=== PATIENT | male | born 1950 | race Caucasian/White ===

== ENCOUNTER 2023-10-21 11:52 | Outpatient (RCR) | payer MEDICARE, OTHER, SELFPAY | END 2023-10-21 23:59 | disposition home or self-care (01) | LOC: RPT 11:52 | PROVIDERS: ATTENDING PHYSICIAN Orthopaedic Surgery; FAMILY PHYSICIAN Registered Nurse | DX: Z47.89 Encounter for other orthopedic aftercare (principal); Z73.6 Limitation of activities due to disability | CPT/HCPCS: 97010; 97110; 97140; 97162 ==

== ENCOUNTER 2023-11-18 09:46 | Outpatient (RCR) | payer MEDICARE, OTHER, SELFPAY | END 2023-11-18 10:58 | disposition home or self-care (01) | LOC: RPT 09:46 | PROVIDERS: ATTENDING PHYSICIAN Orthopaedic Surgery; FAMILY PHYSICIAN Registered Nurse | DX: Z47.89 Encounter for other orthopedic aftercare (principal); Z73.6 Limitation of activities due to disability; R26.2 Difficulty in walking, not elsewhere classified; M62.81 Muscle weakness (generalized); M25.511 Pain in right shoulder | CPT/HCPCS: 97010; 97110; 97140 ==

== ENCOUNTER 2023-12-19 06:03 | Inpatient (IN) | payer MEDICARE, OTHER, SELFPAY ==
--- NOTE | 2023-11-15 09:33 | CM ---
Patient is scheduled for an elective R TKR on 12/19/23. Spoke with patient prior to surgery via telephone. Patient had a L TKR at in 2018. Reintroduced role of Orthopedic Navigator. Patient reports that he lives with his in a two story home.
There are no steps to enter and a flight of steps to the second floor (right ascending rail). There is a powder room on the first floor. He currently functions independently and uses a cane. He also has a rolling walker walker. He has never had VN
services. PCP is Roney Gambino.
Discussed orthopedic program and post surgical plans. Reviewed anticipated length of stay and that goal is for him to return home at discharge. Also reviewed outpatient PT. Patient is in agreement with tentative plan and will go directly to
outpatient PT at [facility]. He will have support from his when he goes home.
Patient will complete online education.
Plan: Orthopedic Navigator will remain available to assist with the care of patient and will reassess discharge needs after surgery.
[2023-11-27 13:43] VITALS: BMI 32.5
[2023-11-27 14:20] LABS: Hematocrit 40.1 % (39.0-52.0); Hemoglobin 13.7 g/dL (13.0-18.0); Mean Corp Hgb Conc. 34.2 g/dL (33.0-37.0); Mean Corpuscular Volume 87.9 fL (80.0-94.0); Mean Platelet Volume 9.4 fL (7.4-10.4); Platelet Count 254 10^3/uL (130-400); Red Blood Cell Count 4.56 10^6/uL (4.70-6.10); Red Cell Dist. Width 11.9 % (11.5-14.5); White Blood Cell Count 6.9 10^3/uL (4.8-10.8)
[2023-11-27 15:04] LABS: ALT (SGPT) 17 U/L (0-50); AST (SGOT) 26 U/L (17-59); Albumin 4.5 g/dl (3.5-5.0); Alkaline Phosphatase 77 U/L (38-126); Blood Urea Nitrogen 14 mg/dl (9-20); Calcium 9.4 mg/dl (8.4-10.2); Carbon Dioxide 29 mmol/L (22-30); Chloride 101 mmol/L (98-107); Estimated Creatinine Clearance > 125 ml/min; Glucose 83 mg/dl (70-99); Potassium 4.6 mmol/L (3.5-5.1); Sodium 135 mmol/L (135-145); Total Bilirubin 0.7 mg/dl (0.2-1.3); Total Protein 6.9 g/dl (6.3-8.2); eGFR > 60.00
[2023-11-27 15:16] VITALS: BMI 32.5
[2023-11-28 08:54] LABS: Glycohemoglobin (HgbA1c) 5.4 % (4.0-5.6)
[2023-12-19] VITALS (18 sets, daily range): BP systolic 120–156; BP diastolic 70–103; PULSE 89; O2SAT 97; BMI 32.5
[2023-12-19] MEDS: CELEBREX 200 MG PO (06:33)
[2023-12-19] MEDS: NORMOSOL-R 1000 IV ×2 (06:33→09:42)
[2023-12-19] MEDS: TYLENOL 650 MG PO ×5 (06:33→23:39)
[2023-12-19] MEDS: ROXICODONE 5 MG PO (09:45)
[2023-12-19] MEDS: TYLENOL PO (12:08)
[2023-12-19] MEDS: SINGULAIR 10 MG PO (12:32)
[2023-12-19] MEDS: CARDURA 2 MG PO (12:33)
--- NOTE | 2023-12-19 14:36 | PTCARENOTE ---
pt admitted to room 2119 from PACU at 1345. pt arrived via bed, awake and alert. pt oriented to room, bed controls, call maza and plan of care with verbalized understanding. telemetry reading SR w/pvc's in 70's. neurovascular checks b/l le's WNL.
right knee dressing clean and dry. pt denies c/o pain or discomfort. will observe.
--- NOTE | 2023-12-19 14:38 | W.PN.UPDATE ---
Update Note
Progress Note Update
Patient doing well postop. VSS. Pulm: nonlabored. CV: regular. RLE: Dressing CDI. NVI distally. Calf soft. Postop xray as expected. ASA for DVT prophylaxis. OOB with PT today and plan for discharge home tomorrow with outpatient PT on Saturday
at .
[2023-12-19] MEDS: FLOMAX 0.400000000000000022 MG PO (15:18)
[2023-12-19] MEDS: ANCEF 5 IV ×2 (15:18→23:40)
[2023-12-19] MEDS: ROXICODONE 10 MG PO ×2 (15:18→22:07)
--- NOTE | 2023-12-19 16:35 | RESPNOTE ---
Patient does not wear HS CPAP- wears mouthpiece-- NO machine left bedside
[2023-12-19] MEDS: ASPIRIN 325 MG PO (18:28)
[2023-12-19] MEDS: DECADRON 4 MG PO (19:34)
[2023-12-19] MEDS: COLACE 100 MG PO (19:34)
[2023-12-19] MEDS: SENOKOT 17.1999999999999993 MG PO (19:34)
[2023-12-19] MEDS: PROTONIX 20 MG PO (19:34)
[2023-12-19] MEDS: TORADOL 15 MG IV (19:35)
[2023-12-19] MEDS: TAMBOCOR 100 MG PO (19:36)
[2023-12-19] MEDS: BACTROBAN 2% OINTMENT 1 APPLIC NASAL (21:34)
[2023-12-19] MEDS: NEURONTIN 300 MG PO (21:34)
[2023-12-19] MEDS: MAG-TAB SR 84 MG PO (21:35)
[2023-12-20] MEDS: TYLENOL 650 MG PO ×3 (03:28→11:57)
[2023-12-20] MEDS: ROXICODONE 5 MG PO (03:29)
[2023-12-20 03:35] VITALS: BP 130/80
--- NOTE | 2023-12-20 07:27 | W.PN.ORTHO ---
Today's Communication / Plan
-
Discharge home today if able.
Assessment
.
Distal Motor Intact: Yes
Dressing:
Clean, dry and intact.
Assessment:
Low back pain with sciatica following R TKR. Have ordered a dose of IV toradol. Recommend PT today. Recommend a steroid taper. Plan for discharge later today as able
Plan
.
Surgery / Date: 12/19/23 R TKR Joie
DVT Prophylaxis: Aspirin
Activity:
Out of bed.
PT/OT
Discharge Plan: Home w/ Outpatient PT
Subjective
.
.:
Patient with complaints of low back pain. Notes sciatica prior to surgery which is worse now. No bowel or bladder issues and no saddle anesthesia.
Vital Signs and Labs
.
Vital Signs and Labs:
Lab Results
11/27/23 13:12
11/27/23 13:12
Temp Pulse Resp BP Pulse Ox
97.5 F 72 18 130/80 95
12/20/23 03:35 12/20/23 03:35 12/20/23 03:35 12/20/23 03:35 12/20/23 03:35
Non-invasive Hgb result: 13.1
Physical Exam
-
Pulm: nonlabored
CV: regular
Abd: soft
RLE: Swelling noted. Had significant swelling preop. Dressing CDI. NVI distally. Calf soft. Able to fully extend. NVI distally.
[2023-12-20 07:42] VITALS: BP 156/92
[2023-12-20] MEDS: ROXICODONE 10 MG PO (08:23)
[2023-12-20] MEDS: PROTONIX 20 MG PO (08:23)
[2023-12-20] MEDS: SINGULAIR 10 MG PO (08:23)
[2023-12-20] MEDS: ASPIRIN 325 MG PO (08:23)
[2023-12-20] MEDS: COLACE 100 MG PO (08:24)
[2023-12-20] MEDS: DECADRON 4 MG PO (08:24)
[2023-12-20] MEDS: CARDURA 2 MG PO (08:24)
[2023-12-20] MEDS: BACTROBAN 2% OINTMENT 1 APPLIC NASAL (08:24)
[2023-12-20] MEDS: TAMBOCOR 100 MG PO (08:24)
[2023-12-20] MEDS: TORADOL 30 MG IV (08:25)
[2023-12-20] MEDS: SENOKOT 17.1999999999999993 MG PO (08:26)
[2023-12-20] MEDS: FLOMAX 0.400000000000000022 MG PO (08:26)
[2023-12-20] MEDS: MOBIC 15 MG PO (08:27)
[2023-12-20] MEDS: TORADOL IV (08:29)
--- NOTE | 2023-12-20 09:42 | CM ---
Addendum entered by DONALDO Aguilar 12/20/23 12:02:
Met with patient after he completed therapies. Gave him script for outpatient PT and reviewed date and time of evaluation.
Original Note:
Reviewed chart and held rounds with PT, OT and nursing. Patient admitted as planned for elective R TKR. Met with patient at bedside. Confirmed information previously obtained for assessment. Also discussed discharge plans. The plan is for patient to
return home at discharge. He will have support from his when he goes home. Patient will go directly to outpatient PT and will go to [facility]. He has an appointment scheduled for Friday 12/22. Reviewed need to schedule appointment with
PA at Dr. Salter office in two weeks for removal of katia.
Patient has 2 rolling walkers, 2 canes at home.
He will use [facility] for discharge prescriptions.
THR/TKR ADMIT NOTE (VN)
--- NOTE | 2023-12-20 10:04 | W.PN.ORTHO ---
Today's Communication / Plan
-
d/c
Assessment
.
Distal Motor Intact: Yes
Dressing:
Clean, dry and intact.
Assessment:
Sciatic pain -Valium + gabapentin
Plan
.
Surgery / Date: 12/19/23 R TKR Joie
DVT Prophylaxis: Aspirin
Activity:
Out of bed.
PT/OT
Discharge Plan: Home w/ Outpatient PT
Subjective
.
.:
Patient resting comfortably.
Sciatic pain LLE
Vital Signs and Labs
.
Vital Signs and Labs:
Lab Results
11/27/23 13:12
11/27/23 13:12
Temp Pulse Resp BP Pulse Ox
98.1 F 71 18 156/92 98
12/20/23 07:42 12/20/23 07:42 12/20/23 07:42 12/20/23 08:26 12/20/23 07:42
Non-invasive Hgb result: 13.1
Physical Exam
-
HEENT: No pallor, cyanosis, or jaundice. Throat clear.
NECK: Supple. No JVD.
RESPIRATORY: Lungs clear to auscultation.
CVS: S1, S2 normal. RRR.� No murmur, rub or gallop.
ABDOMEN: Soft, non-tender. No distension. BS+/normal.
EXTREMITIES: strength equal, no calf pain with palpation
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 No focal deficits. 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
[2023-12-20 10:06] VITALS: BP 133/76; PULSE 75
[2023-12-20] MEDS: VALIUM 2 MG PO (10:07)
[2023-12-20] MEDS: NEURONTIN 300 MG PO (10:08)
--- NOTE | 2023-12-20 10:13 | W.DS.TRANS ---
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
-
Discharge Instructions:
Discharge Diagnosis/Procedures R TKA Dr. Salter 12/19/23
Diet As tolerated
Activity With Walker
Driving Restrictions No driving
Bathing Restrictions OK to Shower
Other Services PT
Instructions:
Stand-Alone Forms: Total Hip/Knee Replacement D/C
Changes to Home Medications: Yes
Discharge Medications:
DC Medications w/original date entered in [employer]
esomeprazole magnesium 40 mg capsule,delayed release (Nexium) 40 mg PO BID Gastrointestinal Issue 12/03/17
doxazosin 2 mg tablet 2 mg PO DAILY Blood Pressure 10/18/21
flecainide 100 mg tablet 100 mg PO BID Arrhythmia 10/18/21
amlodipine 5 mg tablet 5 mg PO DAILY Blood Pressure 07/26/23
magnesium 200 mg tablet 400 mg PO HS Electrolyte Repletion 07/26/23
montelukast 10 mg tablet 10 mg PO DAILY ASTHMA 07/26/23
multivitamin 1 tab PO HS Supplement 07/26/23
silodosin 8 mg capsule 8 mg PO DAILY Urinary Issue 07/26/23
valsartan 320 mg tablet 320 mg PO DAILY Blood Pressure 07/26/23
naproxen sodium 220 mg capsule 220 mg PO Q12H PRN pain 11/22/23
ondansetron HCl 4 mg tablet 4 mg PO Q6H PRN nausea, vomiting 11/22/23
mupirocin 2 % topical ointment 1 applic topical BID infection prevention #1 tube 11/27/23
acetaminophen 325 mg capsule (Tylenol) 650 mg (2 x 325 mg) PO QID #2 caps 12/20/23
aspirin 325 mg tablet 325 mg PO DAILY blood clot prevention #1 tab 12/20/23
dexamethasone 4 mg tablet 4 mg PO BID inflammation #6 tabs 12/20/23
diazepam 5 mg tablet (Valium) 5 mg PO HS PRN muscle spasm/sleep #5 tabs 12/20/23
docusate sodium 100 mg capsule (Colace) 100 mg PO BID stool softner #1 cap 12/20/23
gabapentin 300 mg capsule 300 mg PO TID sleep/pain #10 caps 12/20/23
magnesium hydroxide 400 mg/5 mL oral suspension (Milk of Magnesia) 30 ml PO HS PRN Constipation #1 mL 12/20/23
meloxicam 15 mg tablet 15 mg PO DAILY anti-inflammatory #14 tabs 12/20/23
oxycodone 5 mg tablet 5 mg PO Q6H PRN 1 tab moderate pain, 2 tabs severe pain #30 tabs 12/20/23
sennosides 8.6 mg tablet (Senokot) 17.2 mg (2 x 8.6 mg) PO BID laxative #2 tabs 12/20/23
Home Medication Changes
dexamethasone 4 mg tablet 4 mg PO BID inflammation #6 tabs 12/20/23
diazepam 5 mg tablet (Valium) 5 mg PO HS PRN muscle spasm/sleep #5 tabs 12/20/23
gabapentin 300 mg capsule 300 mg PO TID sleep/pain #10 caps 12/20/23
meloxicam 15 mg tablet 15 mg PO DAILY anti-inflammatory #14 tabs 12/20/23
oxycodone 5 mg tablet 5 mg PO Q6H PRN 1 tab moderate pain, 2 tabs severe pain #30 tabs 12/20/23
Pending Results: No
[2023-12-20 11:06] VITALS: BP 133/76; PULSE 76; O2SAT 99
[2023-12-20 11:44] VITALS: BP 125/77
== END 2023-12-20 13:21 | disposition home or self-care (01) | DRG 470 ==
LOC: 2 SOUTH 06:03
PROVIDERS: ADMITTING PHYSICIAN Orthopaedic Surgery; FAMILY PHYSICIAN Registered Nurse
PROC: 0SRC0J9 Replacement of Right Knee Joint with Synthetic Substitute, Cemented, Open Approach (ICD-10-PCS; 2023-12-19)
DX: M17.11 Unilateral primary osteoarthritis, right knee (principal); E66.9 Obesity, unspecified; K21.9 Gastro-esophageal reflux disease without esophagitis; I10 Essential (primary) hypertension; E78.5 Hyperlipidemia, unspecified; N40.0 Benign prostatic hyperplasia without lower urinary tract symptoms; G43.909 Migraine, unspecified, not intractable, without status migrainosus; G47.33 Obstructive sleep apnea (adult) (pediatric); E05.90 Thyrotoxicosis, unspecified without thyrotoxic crisis or storm; F10.90 Alcohol use, unspecified, uncomplicated; I49.3 Ventricular premature depolarization; M54.41 Lumbago with sciatica, right side; I87.2 Venous insufficiency (chronic) (peripheral); R13.10 Dysphagia, unspecified; E04.1 Nontoxic single thyroid nodule; Z96.652 Presence of left artificial knee joint; Z87.891 Personal history of nicotine dependence; Z68.32 Body mass index [BMI] 32.0-32.9, adult
CPT/HCPCS: 36415; 73560; 80053; 83036; 85027; 87070; 97110; 97116; 97162; 97166; 97530; 97535; C1713; C1776

== ENCOUNTER → 2024-01-15 07:00 | Outpatient (REF) | payer MEDICARE, OTHER, SELFPAY | LOC: PAVMRI 07:00 | PROVIDERS: ATTENDING PHYSICIAN Physician Assistant; FAMILY PHYSICIAN Registered Nurse | DX: M54.50 Low back pain, unspecified (principal) | CPT/HCPCS: 72148 ==

== ENCOUNTER 2024-01-21 10:54 | Outpatient (RCR) | payer MEDICARE, OTHER, SELFPAY | END 2024-01-21 23:59 | disposition home or self-care (01) | LOC: RPT 10:54 | PROVIDERS: ATTENDING PHYSICIAN Orthopaedic Surgery; FAMILY PHYSICIAN Registered Nurse | DX: Z47.1 Aftercare following joint replacement surgery (principal); Z73.6 Limitation of activities due to disability; R26.2 Difficulty in walking, not elsewhere classified; M62.81 Muscle weakness (generalized); M25.561 Pain in right knee; Z96.651 Presence of right artificial knee joint | CPT/HCPCS: 97010; 97110; 97112; 97162 ==

== ENCOUNTER 2024-02-19 12:05 | Outpatient (RCR) | payer MEDICARE, OTHER, SELFPAY | END 2024-02-19 23:59 | disposition home or self-care (01) | LOC: RPT 12:05 | PROVIDERS: ATTENDING PHYSICIAN Orthopaedic Surgery; FAMILY PHYSICIAN Registered Nurse | DX: Z47.1 Aftercare following joint replacement surgery (principal); Z96.651 Presence of right artificial knee joint; Z73.6 Limitation of activities due to disability; R26.2 Difficulty in walking, not elsewhere classified; M25.661 Stiffness of right knee, not elsewhere classified; M25.561 Pain in right knee | CPT/HCPCS: 97010; 97110; 97112 ==

== ENCOUNTER 2024-03-04 12:33 | Outpatient (RCR) | payer MEDICARE, OTHER, SELFPAY | END 2024-03-04 13:48 | disposition home or self-care (01) | LOC: RPT 12:33 | PROVIDERS: ATTENDING PHYSICIAN Orthopaedic Surgery; FAMILY PHYSICIAN Registered Nurse | DX: Z47.1 Aftercare following joint replacement surgery (principal); Z73.6 Limitation of activities due to disability; M62.81 Muscle weakness (generalized); R26.2 Difficulty in walking, not elsewhere classified; M25.561 Pain in right knee; R26.89 Other abnormalities of gait and mobility; Z96.651 Presence of right artificial knee joint | CPT/HCPCS: 97010; 97110; 97112 ==

== ENCOUNTER → 2024-05-26 09:42 | Outpatient (REF) | payer MEDICARE, OTHER, SELFPAY ==
[2024-05-26 12:20] LABS: % Eosinophils 3.1 % (0-6); % Immature Granulocytes 0.2 % (0-0.5); % Monocytes 10.2 % (1.7-9.3); % Neutrophils 59.5 % (42.2-75.2); Absolute Basophils 0.1 10^3/uL (0-0.2); Absolute Eosinophils 0.2 10^3/uL (0-0.7); Absolute Lymphocytes 1.3 10^3/uL (1.2-3.4); Absolute Monocytes 0.5 10^3/uL (0.1-0.6); Absolute Neutrophils 2.9 10^3/uL (1.4-6.5); Hematocrit 38.4 % (39.0-52.0); Hemoglobin 13.6 g/dL (13.0-18.0); Mean Corp Hgb Conc. 35.4 g/dL (33.0-37.0); Mean Corpuscular Volume 84.6 fL (80.0-94.0); Mean Platelet Volume 9.2 fL (7.4-10.4); Nucleated Red Blood Cells % 0 % (-); Platelet Count 229 10^3/uL (130-400); Red Blood Cell Count 4.54 10^6/uL (4.70-6.10); Red Cell Dist. Width 13.2 % (11.5-14.5); White Blood Cell Count 4.8 10^3/uL (4.8-10.8)
[2024-05-26 12:36] LABS: ALT (SGPT) 21 U/L (0-50); AST (SGOT) 29 U/L (17-59); Albumin 4.2 g/dl (3.5-5.0); Alkaline Phosphatase 67 U/L (38-126); Blood Urea Nitrogen 14 mg/dl (9-20); Calcium 9.4 mg/dl (8.4-10.2); Carbon Dioxide 28 mmol/L (22-30); Chloride 100 mmol/L (98-107); Glucose 100 mg/dl (70-99); HDL Cholesterol 61 mg/dl; LDL Cholesterol, Calculated 85 mg/dl; Potassium 4.2 mmol/L (3.5-5.1); Sodium 138 mmol/L (135-145); Total Cholesterol 156 mg/dl (50-199); Total Protein 6.6 g/dl (6.3-8.2); Triglyceride 53 mg/dl (10-149); Very Low Density Lipoprotein 10 mg/dl (0-30); eGFR > 60.00
[2024-05-26 13:02] LABS: PSA, Total - Screen 0.86 ng/ml (0.0-4.0); TSH Reflex To Free T4 0.43 uIU/ml (0.47-4.68)
[2024-05-26 13:32] LABS: Free T4 1.32 ng/dl (0.78-2.19)
== END ==
LOC: HWRAD 09:42
PROVIDERS: ATTENDING PHYSICIAN Registered Nurse
DX: E04.1 Nontoxic single thyroid nodule (principal); N40.1 Benign prostatic hyperplasia with lower urinary tract symptoms; E78.5 Hyperlipidemia, unspecified; E05.90 Thyrotoxicosis, unspecified without thyrotoxic crisis or storm; Z12.5 Encounter for screening for malignant neoplasm of prostate
CPT/HCPCS: 36415; 76536; 80053; 80061; 84439; 84443; 85025; G0103

== ENCOUNTER → 2024-06-23 12:04 | Outpatient (REF) | payer MEDICARE, OTHER, SELFPAY | LOC: RSP 12:04 | PROVIDERS: ATTENDING PHYSICIAN Internal Medicine; FAMILY PHYSICIAN Registered Nurse | DX: R06.09 Other forms of dyspnea (principal) | CPT/HCPCS: 94727; 94729; 88738; 93306; 94010 ==

== ENCOUNTER → 2024-07-31 15:28 | Outpatient (REF) | payer MEDICARE, OTHER, SELFPAY | LOC: RAD 15:28 | PROVIDERS: ATTENDING PHYSICIAN Registered Nurse | DX: M54.12 Radiculopathy, cervical region (principal); R20.2 Paresthesia of skin | CPT/HCPCS: 72040 ==

== ENCOUNTER → 2024-11-19 16:04 | Outpatient (REF) | payer MEDICARE, OTHER, SELFPAY ==
[2024-11-21 21:48] LABS: Fat, Fecal - Neutral Normal (Normal); Fat, Fecal - Split Normal (Normal)
== END ==
LOC: REG 16:04
PROVIDERS: ATTENDING PHYSICIAN Registered Nurse
DX: R19.7 Diarrhea, unspecified (principal)
CPT/HCPCS: 82705; 83993; 87045; 87046; 87324; 87328; 87329; 87338; 87427; 87449; 89055

== ENCOUNTER → 2024-11-23 08:38 | Outpatient (REF) | payer MEDICARE, OTHER, SELFPAY ==
[2024-11-23 10:25] LABS: Glycohemoglobin (HgbA1c) 5.2 % (4.0-5.6)
[2024-11-23 10:27] LABS: ALT (SGPT) 19 U/L (0-50); AST (SGOT) 24 U/L (17-59); Albumin 4.4 g/dl (3.5-5.0); Alkaline Phosphatase 64 U/L (38-126); Blood Urea Nitrogen 14 mg/dl (9-20); Calcium 9.5 mg/dl (8.4-10.2); Carbon Dioxide 28 mmol/L (22-30); Chloride 98 mmol/L (98-107); Glucose 89 mg/dl (70-99); Potassium 4.2 mmol/L (3.5-5.1); Sodium 134 mmol/L (135-145); Total Bilirubin 1.2 mg/dl (0.2-1.3); Total Protein 6.7 g/dl (6.3-8.2); eGFR > 60.00
[2024-11-23 10:56] LABS: TSH Reflex To Free T4 0.42 uIU/ml (0.47-4.68)
[2024-11-23 11:27] LABS: Free T4 1.28 ng/dl (0.78-2.19)
== END ==
LOC: REG 08:38
PROVIDERS: ATTENDING PHYSICIAN Registered Nurse
DX: E78.1 Pure hyperglyceridemia (principal); I10 Essential (primary) hypertension; E78.5 Hyperlipidemia, unspecified; E05.90 Thyrotoxicosis, unspecified without thyrotoxic crisis or storm; R73.09 Other abnormal glucose
CPT/HCPCS: 36415; 80053; 83036; 84439; 84443

== ENCOUNTER → 2024-11-26 14:57 | Outpatient (REF) | payer MEDICARE, OTHER, SELFPAY ==
[2024-11-26 15:41] LABS: Erythrocyte Sed Rate 3 mm/hour (0-20)
[2024-11-26 15:52] LABS: C-Reactive Protein < 5.00 mg/L (0.0-10.00)
== END ==
LOC: REG 14:57
PROVIDERS: ATTENDING PHYSICIAN Registered Nurse
DX: R19.5 Other fecal abnormalities (principal); R15.9 Full incontinence of feces
CPT/HCPCS: 36415; 83993; 85652; 86140

== ENCOUNTER → 2024-11-30 15:22 | Outpatient (REF) | payer MEDICARE, OTHER, SELFPAY | LOC: RAD 15:22 | PROVIDERS: ATTENDING PHYSICIAN Registered Nurse | DX: R19.5 Other fecal abnormalities (principal); R15.9 Full incontinence of feces | CPT/HCPCS: 74177; Q9967 ==

== ENCOUNTER → 2024-12-25 15:33 | Outpatient (REF) | payer MEDICARE, OTHER, SELFPAY ==
[2024-12-27 23:45] LABS: tTG IgA Antibody <1.02 FLU (0.00-4.99)
[2024-12-28 00:57] LABS: IgA 188 mg/dl (70-400)
== END ==
LOC: REG 15:33
PROVIDERS: ATTENDING PHYSICIAN Physician Assistant; FAMILY PHYSICIAN Registered Nurse
DX: R19.4 Change in bowel habit (principal)
CPT/HCPCS: 36415; 82653; 82784; 83516; 86231

== ENCOUNTER → 2024-12-27 10:50 | Outpatient (REF) | payer MEDICARE, OTHER, SELFPAY | LOC: PAVMRI 10:50 | PROVIDERS: ATTENDING PHYSICIAN Orthopaedic Surgery; FAMILY PHYSICIAN Registered Nurse | DX: M54.50 Low back pain, unspecified (principal) | CPT/HCPCS: 72148 ==

== ENCOUNTER → 2024-12-28 09:14 | Outpatient (REF) | payer MEDICARE, OTHER, SELFPAY | LOC: RAD 09:14 | PROVIDERS: ATTENDING PHYSICIAN Registered Nurse | DX: S32.040A Wedge compression fracture of fourth lumbar vertebra, initial encounter for closed fracture (principal) | CPT/HCPCS: 77080 ==

== ENCOUNTER 2025-01-14 06:21 | Day surgery (SDC) | payer MEDICARE, OTHER, SELFPAY | END 2025-01-14 11:35 | disposition home or self-care (01) | LOC: GI 06:21 | PROVIDERS: ATTENDING PHYSICIAN Internal Medicine; FAMILY PHYSICIAN Registered Nurse | DX: K52.9 Noninfective gastroenteritis and colitis, unspecified (principal); K57.30 Diverticulosis of large intestine without perforation or abscess without bleeding; D12.2 Benign neoplasm of ascending colon; D12.4 Benign neoplasm of descending colon | CPT/HCPCS: 45385; 45380; 88305 ==

== ENCOUNTER → 2025-04-10 06:41 | Outpatient (REF) | payer MEDICARE, OTHER, SELFPAY | LOC: MRI 3T 06:41 | PROVIDERS: ATTENDING PHYSICIAN Student in an Organized Health Care Education/Training Program; FAMILY PHYSICIAN Registered Nurse | DX: M54.12 Radiculopathy, cervical region (principal) | CPT/HCPCS: 72141 ==

== ENCOUNTER → 2025-06-08 08:16 | Outpatient (REF) | payer MEDICARE, OTHER, SELFPAY ==
[2025-06-08 09:01] LABS: Hematocrit 39.4 % (39.0-52.0); Hemoglobin 13.8 g/dL (13.0-18.0); Mean Corp Hgb Conc. 35.0 g/dL (33.0-37.0); Mean Corpuscular Volume 88.1 fL (80.0-94.0); Nucleated Red Blood Cells % 0 % (-); Platelet Count 219 10^3/uL (130-400); Red Cell Dist. Width 12.2 % (11.5-14.5)
[2025-06-08 09:44] LABS: ALT (SGPT) 19 U/L (0-50); AST (SGOT) 23 U/L (17-59); Albumin 4.3 g/dl (3.5-5.0); Alkaline Phosphatase 49 U/L (38-126); Blood Urea Nitrogen 8 mg/dl (9-20); Calcium 8.9 mg/dl (8.4-10.2); Carbon Dioxide 28 mmol/L (22-30); Chloride 100 mmol/L (98-107); Glucose 89 mg/dl (70-99); HDL Cholesterol 64 mg/dl; LDL Cholesterol, Calculated 86 mg/dl; Potassium 3.8 mmol/L (3.5-5.1); Sodium 134 mmol/L (135-145); Total Protein 6.5 g/dl (6.3-8.2); Very Low Density Lipoprotein 11 mg/dl (0-30); eGFR > 60.00
== END ==
LOC: REG 08:16
PROVIDERS: ATTENDING PHYSICIAN Registered Nurse
DX: E87.1 Hypo-osmolality and hyponatremia (principal); I10 Essential (primary) hypertension; E78.5 Hyperlipidemia, unspecified; E05.90 Thyrotoxicosis, unspecified without thyrotoxic crisis or storm
CPT/HCPCS: 36415; 80053; 80061; 84439; 84443; 85025

== ENCOUNTER → 2025-06-24 08:45 | Outpatient (REF) | payer MEDICARE, OTHER, SELFPAY | LOC: DHSLP 08:45 | PROVIDERS: ATTENDING PHYSICIAN Internal Medicine; FAMILY PHYSICIAN Registered Nurse | DX: G47.33 Obstructive sleep apnea (adult) (pediatric) (principal) | CPT/HCPCS: 95806 ==

== ENCOUNTER → 2025-07-09 13:34 | Outpatient (REF) | payer MEDICARE, OTHER, SELFPAY | LOC: DHSLP 13:34 | PROVIDERS: ATTENDING PHYSICIAN Internal Medicine; FAMILY PHYSICIAN Registered Nurse | DX: G47.33 Obstructive sleep apnea (adult) (pediatric) (principal) | CPT/HCPCS: 95806 ==